=== PATIENT | female | born 1990 | race Caucasian/White ===

== ENCOUNTER 2018-08-04 08:49 | Emergency (ER) | payer BC ==
[2018-08-04 09:44] VITALS: BP 122/82
--- NOTE | 2018-08-04 10:25 | UC ---
Throat Pain/Nasal Tony HPI - HPI Summary HPI Summary: 27 yo female with fever/chills/myalgias and sore throat that started yesterday hx of mono no nasal congestion or cough no n/v/d - History of Current Complaint Chief Complaint: UCGeneralIllness Stated Complaint: ST,[place],FEVER,ACHY,LEFT EAR PAIN Time Seen by Provider: 08/04/18 10:17 Hx Obtained From: Patient Hx Last Menstrual Period: 08/03/18 Onset/Duration: Gradual Onset Severity: Severe Pain Intensity: 9 Pain Scale Used: 0-10 Numeric - Epiglottits Risk Factors Epiglottis Risk Factors: Negative - Allergies/Home Medications Allergies/Adverse Reactions: Allergies Allergy/AdvReac Type Severity Reaction Status Date / Time No Known Allergies Allergy Verified 08/04/18 09:45 PMH/Surg Hx/FS Hx/Imm Hx Previously Healthy: Yes - Surgical History Surgical History: None - Social History Alcohol Use: Occasionally Substance Use Type: None Smoking Status (MU): Never Smoked Tobacco Review of Systems All Other Systems Reviewed And Are Negative: Yes Constitutional: Positive: Negative Skin: Positive: Negative Eyes: Positive: Negative ENT: Positive: Sore Throat Respiratory: Positive: Negative Cardiovascular: Positive: Negative Gastrointestinal: Positive: Negative Genitourinary: Positive: Negative Motor: Positive: Negative Neurovascular: Positive: Negative Musculoskeletal: Positive: Negative Neurological: Positive: Negative Psychological: Positive: Negative Physical Exam Triage Information Reviewed: Yes Appearance: Well-Appearing, No Pain Distress, Well-Nourished Vital Signs: Initial Vital Signs Temp 100.2 F 08/04/18 09:37 Pulse 109 08/04/18 09:37 Resp 18 08/04/18 09:37 BP 122/82 08/04/18 09:37 Pulse Ox 100 08/04/18 09:37 Vital Signs Reviewed: Yes Eyes: Positive: Conjunctiva Clear ENT: Positive: Hearing grossly normal, Pharyngeal erythema, TMs normal, Tonsillar swelling - L>R, Tonsillar exudate - L>R, Uvula midline. Negative: Nasal congestion, Nasal drainage, Trismus, Muffled voice, Hoarse voice, Dental tenderness, Sinus tenderness Dental Exam: Normal Neck: Positive: Supple, Enlarged Nodes @ - L>R anterior cervical (tender) Respiratory: Positive: Lungs clear, Normal breath sounds, No respiratory distress, No accessory muscle use Cardiovascular: Positive: RRR, No Murmur, Tachycardia Abdomen Description: Positive: Nontender, No Organomegaly. Negative: CVA Tenderness (R), CVA Tenderness (L) Bowel Sounds: Positive: Present Musculoskeletal: Positive: ROM Intact, No Edema Neurological: Positive: Alert Psychological Exam: Normal Skin Exam: Normal Throat Pain/Nasal Course/Dx - Course Course Of Treatment: strep (-) - Differential Dx/Diagnosis Provider Diagnosis: Exudative tonsillitis Discharge - Sign-Out/Discharge Documenting (check all that apply): Patient Departure All imaging exams completed and their final reports reviewed: No Studies - Discharge Plan Condition: Stable Disposition: HOME Prescriptions: Cephalexin CAP* [Keflex CAP*] 500 mg PO BID #20 cap Patient Education Materials: Tonsillitis (ED) Forms: *Work Release Referrals: Bipin Juan DO [Primary Care Provider] - If Needed Additional Instructions: rest fluids tylenol or ibuprofen for pain/fever recheck in 3-4 days if not better - Billing Disposition and Condition Condition: STABLE Disposition: Home
== END 2018-08-04 10:33 | disposition home or self-care (01) ==
LOC: UCCORT 08:49
DX: J03.90 Acute tonsillitis, unspecified (principal)
CPT/HCPCS: 87651; 99212; G0463